=== PATIENT | male | born 1970 | race Caucasian/White ===

== ENCOUNTER 2023-10-19 11:14 | Emergency (ER) | payer OTHER, SELFPAY ==
[2023-10-19 11:29] VITALS: BP 141/85; PULSE 98; RESP 16; TEMP 36.8; O2SAT 99
--- NOTE | 2023-10-19 12:05 | ED.SKABFB ---
HPI - Skin/Abscess/Foreign Bdy General Chief complaint: Skin/Abscess/Foreign Body Stated complaint: poison citlaly or sumac Time Seen by Provider: 10/19/23 12:07 Source: patient Mode of arrival: ambulatory Limitations: no limitations History of Present Illness HPI narrative: 53-year-old male presented for complaint of poison citlaly rash for about 5 days. He says he has been using triamcinolone cream without improvement. States that have been spreading from the left arm, right hand and left leg. Denies lip, tongue, or throat swelling, shortness of breath or wheezing. Denies changes to soap, detergent, lotion, or any other exposures. No one else in the house or any contacts with similar symptoms. Related Data Allergies Allergy/AdvReac Type Severity Reaction Status Date / Time No Known Allergies Allergy Unknown Unverified 05/08/15 15:55 Review of Systems Review of Systems: CONSTITUTIONAL: Denies body aches, fever, chills, or sweats. EYES: Denies visual changes, redness, or discharge. ENT: Denies rhinorrhea, congestion CARDIOVASCULAR: Denies chest pain, palpitations, or edema. RESPIRATORY: Denies cough or dyspnea. GASTROINTESTINAL: Denies abdominal pain, nausea, vomiting, or diarrhea. SKIN: reports rash MUSCULOSKELETAL: Denies back pain, joint pain, or myalgia. NEUROLOGIC: Denies headache, numbness, tingling, or weakness. PMFSH Comments At time of signature, I have reviewed and agree with nursing past medical, surgical, social and family history unless otherwise noted. Please see nursing chart for further information. There is no relevant family history pertinent to the presenting complaint Exam Narrative: GENERAL: Well-appearing EYES: conjunctivae clear, and EOMI. ENT: Mucous membranes moist. Oropharynx without edema, erythema or lesions. NECK: Supple. No lymphadenopathy CHEST: Clear to auscultation. HEART: Regular rate and rhythm. SKIN: Warm, dry. Scattered vesicles on erytematous base c/w contact dermatitis noted to left arm AC area approx [id number], minimal to right hand and left leg NEURO: Alert and oriented x3. Course Course Emergency Course: Patient is aware of diagnosis, understands and agrees to treatment plan. Anticipatory guidance given. Patient agrees to follow-up as directed and is aware of reasons to seek care at the emergency department. Portions of this record may have been created with voice recognition software Level of Care: Express Care Visit Vital Signs Vital signs: Vital Signs Temperature 98.2 F 10/19/23 11:29 Pulse Rate 98 10/19/23 11:29 Respiratory Rate 16 10/19/23 11:29 Blood Pressure 141/85 H 10/19/23 11:29 Pulse Oximetry 99 10/19/23 11:29 Oxygen Delivery Room Air 10/19/23 11:29 Temperature 98.2 F 10/19/23 11:29 Pulse Rate 98 10/19/23 11:29 Respiratory Rate 16 10/19/23 11:29 Blood Pressure 141/85 H 10/19/23 11:29 Pulse Oximetry 99 10/19/23 11:29 Oxygen Delivery Room Air 10/19/23 11:29 Reviewed MDM - Skin/Abscess/Foreign Bdy MDM Narrative Medical decision making narrative: Discussed physical exam findings consistent with poison citlaly, patient appeared irritable when told he would not receive an IM steroid injection. Discussed the use of the steroid taper. Advised supportive measures and signs/symptoms to go to the ER. Pt is appropriate for outpt treatment and f/u. Differential Diagnosis Differential diagnosis: Likely abscess of skin or subcutaneous tissue, urticaria, herpes zoster, cellulitis and contact dermatitis Discharge Plan Discharge Clinical Impression: Contact dermatitis Patient Disposition: Home, Self-Care Condition: Stable Instructions: Antibiotic Form, Poison Citlaly (ED) Additional Instructions: Take steroids as directed. Benadryl every 8 hours as needed For itching Cool compresses to the sites of itching, avoid hot water. Avoid scratching to reduce the risk of infection Follow up with your prima
== END 2023-10-19 12:11 | disposition home or self-care (01) ==
PROVIDERS: Emergency Provider Nurse Practitioner Family; PCP Family Medicine
DX: L25.9 Unspecified contact dermatitis, unspecified cause (principal)
CPT/HCPCS: 99203; G0463